=== PATIENT | male | born 1975 | race Caucasian/White ===

== ENCOUNTER 2017-07-31 15:13 | Emergency (ER) | payer MEDICAID ==
[~2017-07-31] VITALS: Ht 177.8 cm; Wt 83.0 kg
[2017-07-31 15:13] VITALS: BP 140/86
== END 2017-07-31 16:16 | disposition home or self-care (01) ==
LOC: ER 15:18
DX: F28 Other psychotic disorder not due to a substance or known physiological condition (principal); F91.8 Other conduct disorders
CPT/HCPCS: 99283; A4606; Z7610